=== PATIENT | female | born 1990 | race Caucasian/White ===

== ENCOUNTER 2021-05-10 14:40 | Emergency (ER) | payer OTHER, BC ==
[~2021-05-10] VITALS: Ht 152.4 cm; Wt 56.7 kg
[2021-05-10] MEDS ORDERED: FLEXERIL PO (16:02)
[2021-05-10] MEDS ORDERED: HYDROCODON-ACE1 EAC7 PO (16:02)
[2021-05-10 16:47] VITALS: BP 121/88
== END 2021-05-10 16:48 | disposition home or self-care (01) ==
LOC: M.ERS 14:40
DX: S16.1XXA Strain of muscle, fascia and tendon at neck level, initial encounter (principal); Z88.6 Allergy status to analgesic agent; V89.2XXA Person injured in unspecified motor-vehicle accident, traffic, initial encounter; Y93.89 Activity, other specified; Y92.89 Other specified places as the place of occurrence of the external cause; Y99.8 Other external cause status